=== PATIENT | female | born 1990 | race Caucasian/White ===

== ENCOUNTER 2022-06-06 08:48 | Emergency (ER) | payer BC ==
[~2022-06-06] VITALS: Ht 175.2 cm; Wt 97.5 kg
[2022-06-06] MEDS ORDERED: CEPHALEXIN500 M1 PO (09:56)
== END 2022-06-06 09:59 | disposition home or self-care (01) ==
LOC: ED 08:48
DX: J02.0 Streptococcal pharyngitis (principal); H92.02 Otalgia, left ear; Z88.0 Allergy status to penicillin; Z87.891 Personal history of nicotine dependence; Z88.8 Allergy status to other drugs, medicaments and biological substances